=== PATIENT | female | born 1995 | race Caucasian/White ===

== ENCOUNTER 2017-04-05 22:52 | Emergency (ER) | END 2017-04-06 01:20 | disposition home or self-care (01) | DX: S16.1XXA Strain of muscle, fascia and tendon at neck level, initial encounter (principal); S50.02XA Contusion of left elbow, initial encounter; V49.59XA Passenger injured in collision with other motor vehicles in traffic accident, initial encounter | CPT/HCPCS: 72040; 73080; Z7502 ==